=== PATIENT | male | born 1985 | race African-American/Black ===

== ENCOUNTER 2024-05-11 04:59 | Emergency (ER) | payer MEDICAID ==
[~2024-05-11] VITALS: Ht 170.2 cm; Wt 70.0 kg
[2024-05-11 05:05] VITALS: TEMP 98.2
[2024-05-11] MEDS: MAGNESIUM 2 G PREMIX 50 ML IV STA (05:27)
[2024-05-11] MEDS ORDERED: METHYLPREDNISOLONE SOD SUCC 125MG/2ML (ACT-O-VIAL) IV STA (05:27)
[2024-05-11 05:52] LABS: HEMATOCRIT. 46.7 % (42.0-52.0); HEMOGLOBIN. 15.3 g/dL (14.0-18.0); MEAN CORPUSCULAR HEMOGLOBIN 27.8 pg (28.0-32.0); MEAN CORPUSCULAR HGB CONC 32.8 g/dL (31.0-37.0); MEAN CORPUSCULAR VOLUME 84.9 fL (80.0-94.0); MEAN PLATELET VOLUME 7.8 fl (7.4-10.4); PLATELET 279 x1000/uL (130-400); RED BLOOD CELL COUNT 5.51 mill/uL (4.7-6.1); RED CELL DISTRIBUTION WIDTH 14.1 % (11.6-14.6); WHITE BLOOD COUNT 12.1 x1000/uL (4.5-11.0)
[2024-05-11 05:54] LABS: CHLORIDE 104 mEq/L (98-107); POTASSIUM 3.5 mEq/L (3.5-5.1); SODIUM 139 mEq/L (136-145)
[2024-05-11 05:55] LABS: CALCIUM 9.4 mg/dL (8.7-10.4); CARBON DIOXIDE 28 mEq/L (21-32); DIFFERENTIAL COMMENT 1
[2024-05-11 06:00] LABS: CREATININE 1.1 mg/dL (0.6-1.3); GLUCOSE 100 mg/dL (70-105); UREA NITROGEN BLOOD 8 mg/dL (9-23)
[2024-05-11] MEDS ORDERED: METHYLPREDNISOLONE SOD SUCC 125MG/2ML (ACT-O-VIAL) IV NR (06:00)
[2024-05-11 06:12] LABS: TROPONIN I HIGH SENSITIVITY < 4 ng/L (3.0-53)
[2024-05-11 06:39] VITALS: PULSE 101; RESP 22; O2SAT 90
[2024-05-11] MEDS: IPRATROPIUM BROMIDE (0.02%) 0.5MG/2.5ML NEB HHN STA (06:39)
[2024-05-11] MEDS: ALBUTEROL (0.083%) 2.5MG/3ML NEB HHN STA (06:40)
[2024-05-11 07:18] LABS: PLATELET ESTIMATE NORMAL
[2024-05-11 10:00] VITALS: BP 117/57; PULSE 97; RESP 20
[2024-05-11] MEDS: FLUTICASONE PROPIONATE 50MCG/SPRAY BOTTLE BOTHNSTRLS STA (11:16)
[2024-05-11] MEDS ORDERED: AZIT250T12 PO (12:56)
[2024-05-11] MEDS ORDERED: P50 PO (12:56)
[2024-05-11] MEDS ORDERED: LORA10CA PO (12:56)
[2024-05-11] MEDS ORDERED: ALBU6.7H15 INH (12:56)
[2024-05-12] MEDS ORDERED: ALBU6.7H15 INH (08:20)
[2024-05-12] MEDS ORDERED: P50 PO (08:20)
== END 2024-05-11 13:27 | disposition home or self-care (01) ==
LOC: ER 04:59
DX: J45.901 Unspecified asthma with (acute) exacerbation (principal)
CPT/HCPCS: 80048; 83880; 85025; 84484; 36415; 71045; 93005; 94644; 96365; 96366; 99285; J3475; J2919; Z7610

== ENCOUNTER 2024-07-09 12:16 | Emergency (ER) | payer MEDICAID ==
[~2024-07-09] VITALS: Ht 128.3 cm; Wt 25.1 kg
[~2024-07-09 12:16] MED LIST: ALBU6.7H15 INH; AZIT250T12 PO; LORA10CA PO; P50 PO
[2024-07-09] MEDS: SODIUM CHLORIDE 0.9% 1,000 ML IV ONE (12:57)
[2024-07-09] MEDS: METHYLPREDNISOLONE SOD SUCC 40MG/ML (ACT-O-VIAL) IV ONE (12:57)
[2024-07-09 13:04] LABS: HEMATOCRIT. 36.8 % (36.0-46.0); MEAN CORPUSCULAR HEMOGLOBIN 29.4 pg (28.0-32.0); MEAN CORPUSCULAR HGB CONC 32.7 g/dL (31.0-37.0); MEAN PLATELET VOLUME 7.8 fl (7.4-10.4); PLATELET 277 x1000/uL (130-400); RED BLOOD CELL COUNT 4.09 mill/uL (3.9-5.3); RED CELL DISTRIBUTION WIDTH 14.7 % (11.6-14.6); WHITE BLOOD COUNT 9.3 x1000/uL (4.5-13.0)
[2024-07-09 13:10] LABS: CHLORIDE 103 mEq/L (98-107); POTASSIUM 3.6 mEq/L (3.5-5.1); SODIUM 134 mEq/L (136-145)
[2024-07-09 13:11] LABS: CALCIUM 9.6 mg/dL (8.5-10.1); CARBON DIOXIDE 20 mEq/L (21-32)
[2024-07-09 13:16] LABS: CREATININE 0.4 mg/dL (0.6-1.3); GLUCOSE 99 mg/dL (70-105); UREA NITROGEN BLOOD 7 mg/dL (7-21)
[2024-07-09 13:59] LABS: DIFFERENTIAL COMMENT 1
[2024-07-09 15:56] LABS: PLATELET ESTIMATE NORMAL
[2024-07-09] MEDS ORDERED: ALBU05 NEB (17:06)
[2024-07-09] MEDS ORDERED: ALBU18HF2 IH (17:06)
[2024-07-09] MEDS ORDERED: PRED15SO74 MT (17:06)
[2024-07-09 17:29] VITALS: BP 101/62; PULSE 135; RESP 19; TEMP 99.9; O2SAT 10
== END 2024-07-09 17:33 | disposition home or self-care (01) ==
LOC: ER 12:16 → EDBD 12:16 → ER 17:33
DX: J45.901 Unspecified asthma with (acute) exacerbation (principal); Z79.899 Other long term (current) drug therapy; Z20.822 Contact with and (suspected) exposure to COVID-19
CPT/HCPCS: 80048; 85025; 87420; 87804 ×2; 36415; 71045; 93005; 96361; 96374; 99285; 87426; J2920; J7030; Z7610

== ENCOUNTER 2024-07-26 01:02 | Emergency (ER) | payer MEDICAID ==
[~2024-07-26] VITALS: Ht 127 cm; Wt 26.1 kg
[~2024-07-26 01:02] MED LIST changes: +ALBU05 NEB; +ALBU18HF2 IH; +PRED15SO74 MT
[2024-07-26] MEDS ORDERED: DEXAMETHASONE 10 MG/ML VIAL IM ONE (02:00)
[2024-07-26] MEDS: ALBUTEROL (0.083%) 2.5MG/3ML NEB HHN ONE (02:53)
[2024-07-26] MEDS ORDERED: ALBU18HF2 IH (03:29)
[2024-07-26] MEDS ORDERED: BUDE6.9H INH (03:29)
[2024-07-26] MEDS: DEXAMETHASONE 10 MG/ML VIAL IM NR (04:00)
[2024-07-26 04:20] VITALS: BP 105/67; PULSE 76; RESP 20; TEMP 98.1; O2SAT 100
[2024-07-26] MEDS ORDERED: CETI-275 MT (04:23)
[2024-07-26] MEDS ORDERED: AZIT200S40 MT (06:05)
== END 2024-07-26 04:30 | disposition home or self-care (01) ==
LOC: ER 01:39
DX: J45.901 Unspecified asthma with (acute) exacerbation (principal); J18.9 Pneumonia, unspecified organism; F19.90 Other psychoactive substance use, unspecified, uncomplicated; Z79.899 Other long term (current) drug therapy
CPT/HCPCS: 71045; 93005; 96372; 99283; J1100; Z7610